=== PATIENT | male | born 2005 | race Caucasian/White ===

== ENCOUNTER 2024-10-25 14:58 | Outpatient (CLI) | payer OTHER, SELFPAY | END 2024-10-25 14:59 | disposition home or self-care (01) | LOC: MICIMG 15:00 | PROVIDERS: PCP Family Medicine; Visit Provider Student in an Organized Health Care Education/Training Program | DX: M54.6 Pain in thoracic spine (principal) | CPT/HCPCS: 72070 ==

== ENCOUNTER 2025-04-18 12:30 | Outpatient (RCR) | payer OTHER, SELFPAY ==
--- NOTE | 2025-03-07 10:05 | OPREHPOC ---
Outpatient Therapy Plan of Care This is a Multidisciplinary Plan of Care that may contain components documented by all disciplines (PT, OT, and ST.) PT Problem 1 PT Problem #1 Knowledge Deficit PT Goal 1 Goal / Goal Update 1*independent with HEP 2* correct posture of shoulders and scapula during PT session Target Visit 8 PT Problem 2 PT Problem #2 Pain PT Goal 1 Goal / Goal Update 1* pt report pain rating at worst of 2/10 2* pt report times of NO pain Target Visit 8 PT Problem 3 PT Problem #3 Impaired Strength PT Goal 1 Goal / Goal Update improve scapular-thoracic strength to 4+/5 improve posture and positioning of trunk Target Visit 8 PT Problem 4 PT Problem #4 Impaired Flexibility PT Goal 1 Goal / Goal Update * pt have good thoracic mobility with PA of spine and all 4 arch/sag stretching Target Visit 8
--- NOTE | 2025-03-07 10:05 | PTOPEVAL1 ---
Assessment and note entered by Kay Jeffries, PT Evaluation Information Assessment Status Evaluation ICD-10 Condition Codes (PT) Pain in Thoracic Spine M54.6 Onset over 1 year ago Subjective Information over a year ago, at gym and doing squats with ~135 # had immediate pain in back and problems walking; lasted few days at the severe level of pain; have continued to have pain since then; when take a deep breath, can feel a little something in my ribs; continue to work out at [employer] with weights, monitor pain and listen to his body to avoid irritation of the pain is not doing any heavy lifting with work and fitness activity activity: 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 X ray was negative. Back Index rating of 28% limitation in activity level. He is R handed and able to do all of his work and home tasks, except heavy lifting. With the evaluation: bilateral UE and hip ranges WNL; decreased thoracic spine mobility; poor posture with forward head and rounded shoulders. Skilled PT services are indicated for modalities to decrease pain; therapeutic exercises to stretch and strength scapular-thoracic areas, with education for HEP and posture. Plan of Care Interventions Electrical Stimulation,Hot Pack/Cold Pack,Manual Therapy,Neuro Re-education,Patient/Caregiver Education,Therapeutic Activities,Therapeutic Exercise,Ultrasound,Other Other Interventions taping PT Services Indicated Yes Treatment Frequency and 1-2x/wk for 8 visits Duration These treatments will address the objective and functional deficits as defined above. The patient will be advanced safely and appropriately in order for the patient to progress towards his/her prior level of function. Additional exercises will be introduced and as well as a comprehensive home exercise program upon discharge, if needed, ?to ensure carryover of functional gains achieved in the clinic. This treatment plan has been reviewed and agreement upon by the patient.
--- NOTE | 2025-04-18 13:22 | OPREHPOC ---
Outpatient Therapy Plan of Care This is a Multidisciplinary Plan of Care that may contain components documented by all disciplines (PT, OT, and ST.) PT Problem 1 PT Problem #1 Knowledge Deficit PT Goal 1 Goal / Goal Update 1*independent with HEP 2* correct posture of shoulders and scapula during PT session 04-18-25 d/c met goals Target Visit 8 Progress Met PT Problem 2 PT Problem #2 Pain PT Goal 1 Goal / Goal Update 1* pt report pain rating at worst of 2/10 2* pt report times of NO pain 04-18-25 d/c goal not met, pain range of 2-4/10 Target Visit 8 Progress Not Met PT Problem 3 PT Problem #3 Impaired Strength PT Goal 1 Goal / Goal Update improve scapular-thoracic strength to 4+/5 improve posture and positioning of trunk 04-18-25 d/c met goals Target Visit 8 Progress Met PT Problem 4 PT Problem #4 Impaired Flexibility PT Goal 1 Goal / Goal Update * pt have good thoracic mobility with PA of spine and all 4 arch/sag stretching 04-18-25 d/c goal not met Target Visit 8 Progress Not Met
--- NOTE | 2025-04-18 13:22 | PTOPDC ---
Assessment and note entered by Kay Jeffries, PT Assessment Status Discharge ICD-10 Condition Codes (PT) Pain in Thoracic Spine M54.6 Onset over 1 year ago Subjective Information pain is about the same; do have some exercises and a plan for it, but not much different; have appt next week. Reported Pain Level Pain Score Self Report Additional Pain Score Comments pain range in the past week 2-4/10; L thoracic ache, constant increase pain: activity/movement decrease pain: rest, stretching, heat, ice no issues with sleeping Assessment PT Clinical Summary Rigo has received 8 PT sessions. With today's assessment, compared to initial evaluation: pain range from 2-5/10 to 2-4/10; self assessment with Back index rating from 28 to 30% limitation in activity tolerance; posture has improved, but still has rounding of both shoulders; increase scapular strength; education for HEP and posture/body mechanics. The goals were partially achieved. Continues to have ache and pain over L thoracic area. Discharge PT. He is to continue with HEP and monitor posture. Follow up with next week. Plan of Care PT Services Indicated No
== END 2025-04-18 15:02 | disposition home or self-care (01) ==
LOC: ANHPT 12:30
PROVIDERS: PCP Family Medicine; Visit Provider Student in an Organized Health Care Education/Training Program
DX: M54.6 Pain in thoracic spine (principal)
CPT/HCPCS: 97110; 97140; 97161; 97530